=== PATIENT | female | born 1960 | race African-American/Black ===

== ENCOUNTER 2020-10-27 08:10 | Outpatient (CLI) | payer MEDICAID, SELFPAY | END 2020-10-27 08:11 | disposition home or self-care (01) | LOC: CSHWCC 08:10 | PROVIDERS: ATTEND Nurse Practitioner Family | DX: T81.89XD Other complications of procedures, not elsewhere classified, subsequent encounter (principal); E03.9 Hypothyroidism, unspecified; I10 Essential (primary) hypertension; Z85.09 Personal history of malignant neoplasm of other digestive organs; Z98.890 Other specified postprocedural states | CPT/HCPCS: 97605; 99203; G0463 ==

== ENCOUNTER 2020-10-29 10:53 | Outpatient (CLI) | payer MEDICAID, SELFPAY | END 2020-10-29 10:54 | disposition home or self-care (01) | LOC: CSHWCC 10:53 | PROVIDERS: ATTEND Nurse Practitioner Family | DX: T81.89XD Other complications of procedures, not elsewhere classified, subsequent encounter (principal); E03.9 Hypothyroidism, unspecified; I10 Essential (primary) hypertension; Z85.09 Personal history of malignant neoplasm of other digestive organs; Z98.890 Other specified postprocedural states | CPT/HCPCS: 99212; G0463 ==

== ENCOUNTER 2020-11-02 09:52 | Outpatient (CLI) | payer MEDICAID, SELFPAY | END 2020-11-02 09:53 | disposition home or self-care (01) | LOC: CSHWCC 09:52 | PROVIDERS: ATTEND Nurse Practitioner Family | DX: T81.89XD Other complications of procedures, not elsewhere classified, subsequent encounter (principal); E03.9 Hypothyroidism, unspecified; I10 Essential (primary) hypertension; Z85.09 Personal history of malignant neoplasm of other digestive organs; Z98.890 Other specified postprocedural states | CPT/HCPCS: 97605 ==

== ENCOUNTER 2020-11-05 11:19 | Outpatient (CLI) | payer MEDICAID, SELFPAY | END 2020-11-05 11:20 | disposition home or self-care (01) | LOC: CSHWCC 11:19 | PROVIDERS: ATTEND Nurse Practitioner Family | DX: T81.89XD Other complications of procedures, not elsewhere classified, subsequent encounter (principal); E03.9 Hypothyroidism, unspecified; I10 Essential (primary) hypertension; Z85.09 Personal history of malignant neoplasm of other digestive organs; Z98.890 Other specified postprocedural states | CPT/HCPCS: 99212; G0463 ==

== ENCOUNTER 2020-11-08 09:07 | Outpatient (CLI) | payer MEDICAID, SELFPAY | END 2020-11-08 09:08 | disposition home or self-care (01) | LOC: CSHWCC 09:07 | PROVIDERS: ATTEND Nurse Practitioner Family | DX: T81.89XD Other complications of procedures, not elsewhere classified, subsequent encounter (principal); E03.9 Hypothyroidism, unspecified; I10 Essential (primary) hypertension; Z85.09 Personal history of malignant neoplasm of other digestive organs; Z98.890 Other specified postprocedural states | CPT/HCPCS: 97605 ==

== ENCOUNTER 2020-11-11 10:57 | Outpatient (CLI) | payer MEDICAID | END 2020-11-11 10:58 | disposition home or self-care (01) | LOC: CSHWCC 10:57 | PROVIDERS: ATTEND Nurse Practitioner Family | DX: T81.89XD Other complications of procedures, not elsewhere classified, subsequent encounter (principal); E03.9 Hypothyroidism, unspecified; I10 Essential (primary) hypertension; Z85.09 Personal history of malignant neoplasm of other digestive organs; Z98.890 Other specified postprocedural states | CPT/HCPCS: 97605 ==

== ENCOUNTER 2020-12-02 08:42 | Outpatient (CLI) | payer MEDICAID | END 2020-12-02 08:43 | disposition home or self-care (01) | LOC: CSHWCC 08:42 | PROVIDERS: ATTEND Nurse Practitioner Family | DX: T81.89XD Other complications of procedures, not elsewhere classified, subsequent encounter (principal); E03.9 Hypothyroidism, unspecified; I10 Essential (primary) hypertension; Z98.890 Other specified postprocedural states; Z85.09 Personal history of malignant neoplasm of other digestive organs | CPT/HCPCS: 97605 ==

== ENCOUNTER 2020-12-09 09:57 | Outpatient (CLI) | payer MEDICAID | END 2020-12-09 09:58 | disposition home or self-care (01) | LOC: CSHWCC 09:57 | PROVIDERS: ATTEND Nurse Practitioner Family | DX: T81.89XD Other complications of procedures, not elsewhere classified, subsequent encounter (principal); E03.9 Hypothyroidism, unspecified; I10 Essential (primary) hypertension; Z85.09 Personal history of malignant neoplasm of other digestive organs; Z98.890 Other specified postprocedural states | CPT/HCPCS: 87070; 87077; 87186; 87205 ==

== ENCOUNTER 2020-12-21 13:28 | Outpatient (CLI) | payer MEDICAID | END 2020-12-21 13:29 | disposition home or self-care (01) | LOC: CSHWCC 13:28 | PROVIDERS: ATTEND Nurse Practitioner Family | DX: T81.89XD Other complications of procedures, not elsewhere classified, subsequent encounter (principal); E03.9 Hypothyroidism, unspecified; I10 Essential (primary) hypertension; Z85.09 Personal history of malignant neoplasm of other digestive organs; Z98.890 Other specified postprocedural states | CPT/HCPCS: 97605 ==

== ENCOUNTER 2022-05-02 01:22 | Emergency (ER) | payer OTHER ==
[2022-05-02] MEDS ORDERED: Ketorolac Tromethamine 30 MG/ML VIAL ONE (02:00)
[2022-05-02] MEDS ORDERED: Fentanyl 100 MCG/2 ML VIAL ONE (02:01)
== END 2022-05-02 04:15 | disposition home or self-care (01) ==
LOC: CSHERS 01:22
DX: S30.0XXA Contusion of lower back and pelvis, initial encounter (principal); E78.5 Hyperlipidemia, unspecified; I10 Essential (primary) hypertension; I25.10 Atherosclerotic heart disease of native coronary artery without angina pectoris; I25.2 Old myocardial infarction; E03.9 Hypothyroidism, unspecified; F17.210 Nicotine dependence, cigarettes, uncomplicated; Z79.899 Other long term (current) drug therapy; W01.0XXA Fall on same level from slipping, tripping and stumbling without subsequent striking against object, initial encounter
CPT/HCPCS: 72131; 96372; J1885; J3010

== ENCOUNTER 2025-07-09 10:43 | Emergency (ER) | payer MEDICAID ==
[2025-07-09 12:32] LABS: #Basophils 0.05 10x3/uL (0.0-0.2); #Eosinophils 0.18 10x3/uL (0.0-0.5); #Monocytes 0.82 10x3/uL (0.0-1.1); #Neutrophils 4.12 10x3/uL (1.5-8.4); %Basophils 0.8 % (0.0-2.0); %Eosinophils 3.0 % (0.0-6.0); %Lymphocytes 14.2 % (18.0-47.0); %Monocytes 13.6 % (0.0-10.0); %Neutrophils 68.2 % (40.0-75.0); Hematocrit 31.4 % (34.9-44.5); Hemoglobin 10.1 g/dL (12.0-15.5); Mean Corpuscular Hemoglobin 29.9 pg (27.0-33.0); Mean Corpuscular Volume 92.9 fL (81.6-98.3); Platelet Count 465 10x3/uL (150-450); Red Blood Cell (RBC) Count 3.38 10x6/uL (3.90-5.03); White Blood Cell (WBC) Count 6.04 10x3/uL (3.5-10.5)
[2025-07-09 12:47] LABS: INR-International Normal Ratio 1.1; PTT 30.1 sec (22.0-33.0); Prothrombin Time 11.5 sec (9.5-12.1)
[2025-07-09 12:50] LABS: ALT (SGPT) Less than 7 U/L (Less than 34); AST (SGOT) 28 U/L (11-34); Albumin 2.8 g/dL (3.1-4.5); Alkaline Phosphatase 105 U/L (40-110); Anion Gap 11 mmol/L (10-20); BUN (Urea Nitrogen) 9 mg/dL (9.8-20.1); Bilirubin, Total 0.4 mg/dL (0.3-1.2); Calc. Creatinine Clearance 0 mL/min (70-130); Calcium 8.9 mg/dL (7.8-10.44); Carbon Dioxide 27 mmol/L (23-31); Chloride 103 mmol/L (98-107); Globulin 3.9 g/dL (2.4-3.5); Glucose 88 mg/dL (80-115); Lipase 14 U/L (8-78); Magnesium 1.9 mg/dL (1.6-2.6); Potassium 3.1 mmol/L (3.5-5.1); Sodium 138 mmol/L (136-145)
== END 2025-07-09 19:26 | disposition home or self-care (01) ==
LOC: CSHERS 10:43
DX: M54.9 Dorsalgia, unspecified (principal); Z51.5 Encounter for palliative care; E05.90 Thyrotoxicosis, unspecified without thyrotoxic crisis or storm; C78.7 Secondary malignant neoplasm of liver and intrahepatic bile duct; C79.89 Secondary malignant neoplasm of other specified sites; C78.89 Secondary malignant neoplasm of other digestive organs; C78.5 Secondary malignant neoplasm of large intestine and rectum; C80.1 Malignant (primary) neoplasm, unspecified; F17.210 Nicotine dependence, cigarettes, uncomplicated; F17.290 Nicotine dependence, other tobacco product, uncomplicated; Z79.899 Other long term (current) drug therapy; Z79.890 Hormone replacement therapy
CPT/HCPCS: 74177; 80053; 83605; 83690; 83735; 85025; 85610; 85730; 96374; 96376; J2270